=== PATIENT | male | born 1970 | race American Indian/Alaskan Native ===

== ENCOUNTER 2016-07-17 07:41 | Emergency (ER) | payer OTHER ==
[2016-07-17] MEDS ORDERED: TORADOL IM ONE (09:53)
[2016-07-17] MEDS ORDERED: FLEXERIL PO ONE (09:53)
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
--- NOTE | 2016-07-17 11:54 | XRay Report ---
BILATERAL SHOULDER RADIOGRAPHS INDICATION: Pain. COMPARISON: None similar. FINDINGS: Frontal and Y views of the both shoulders, 3 projections demonstrate normal humeral head contours, well positioned against the glenoid. Normal acromioclavicular joints. Preserved scapular contours. Normal visualized soft tissues, bilateral ribs and lung. CONCLUSION: No acute bilateral shoulder radiographic abnormality, as described. Thank you for the opportunity to participate in this patient's care.
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
[2016-07-17] MEDS ORDERED: MOTRIN PO ONE (11:57)
--- NOTE | 2016-07-17 12:07 | XRay Report ---
Bilateral knee: History: Pain. Findings: The medial and lateral compartment grossly appears unremarkable. There is spur identified an anterosuperior aspect of the right and left patella. Unfused large tibial tuberosity right knee. Impression: Findings as detailed above. No acute changes.
[2016-07-17 12:45] VITALS: BP 125/81
== END 2016-07-17 13:00 | disposition home or self-care (01) ==
LOC: ED 07:41
DX: S89.92XA Unspecified injury of left lower leg, initial encounter (principal); S89.91XA Unspecified injury of right lower leg, initial encounter; M25.511 Pain in right shoulder; M25.512 Pain in left shoulder; M54.5 Low back pain; M62.830 Muscle spasm of back; V49.59XA Passenger injured in collision with other motor vehicles in traffic accident, initial encounter; Y93.89 Activity, other specified; Y99.8 Other external cause status; Y92.89 Other specified places as the place of occurrence of the external cause
CPT/HCPCS: 72070; 72100; 73030; 73562; 99283; J1885

== ENCOUNTER 2016-08-09 14:50 | Emergency (ER) | payer SELFPAY ==
[2016-08-09 15:26] VITALS: BP 112/76
[2016-08-09] MEDS ORDERED: PERCOCET 5/325 PO ONE (15:51)
--- NOTE | 2016-08-09 16:11 | XRay Report ---
FINAL REPORT EXAM: XR WRIST 3 RT HISTORY: fall with injury/ro fx. swelling and painful TECHNIQUE: AP, lateral, and oblique views of the right wrist PRIORS: None. FINDINGS: There is an acute comminuted nondisplaced fracture of the distal radius. The fracture line extends to the distal articular surface. No evidence of dislocation is seen. The soft tissues demonstrate mild soft tissue swelling around the fracture site. Joint spaces are maintained. IMPRESSION: Acute comminuted nondisplaced fracture of the distal radius.
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
== END 2016-08-09 17:15 | disposition home or self-care (01) ==
LOC: ED 14:50
DX: S52.571A Other intraarticular fracture of lower end of right radius, initial encounter for closed fracture (principal); F17.200 Nicotine dependence, unspecified, uncomplicated; W10.9XXA Fall (on) (from) unspecified stairs and steps, initial encounter; Y93.89 Activity, other specified; Y99.9 Unspecified external cause status; Y92.89 Other specified places as the place of occurrence of the external cause